=== PATIENT | male | born 1990 | race Caucasian/White ===

== ENCOUNTER 2017-03-14 11:34 | Day surgery (SDC) | payer OTHER ==
[2017-03-13 15:59] VITALS: BMI 38.4
[~2017-03-14 11:34] MED LIST: LACTATED RINGERS SOLUTION 1,000 ML IV SCH; ONDANSETRON 4 MG/2 ML VIAL IVPUSH PRN; PROMETHAZINE HCL 25 MG/1 ML VIAL IVPUSH PRN; oxyCODONE HCL 5 MG TABLET PO PRN
[2017-03-14] MEDS ORDERED: LIDOCAINE HCL 2% (20ML MULTI-DOSE VIAL) NR ONE (13:28)
[2017-03-14] MEDS ORDERED: LIDOCAINE HCL/PF 2% SDV 5ML VIAL ONE (13:46)
[2017-03-14] MEDS ORDERED: MIDAZOLAM HCL 2 MG/2 ML SINGLE DOSE VIAL ONE (13:46)
[2017-03-14] MEDS ORDERED: PROPOFOL 20 ML ONE ×2 (13:57→14:05)
[2017-03-14] MEDS ORDERED: DESFLURANE GAS 240 ML BOTTLE IH ONE (14:01)
[2017-03-14] MEDS ORDERED: HYDROmorphone HCL/PF 1 MG/ML VIAL (FOR PYXIS CHARGING ONLY) ONE (14:06)
[2017-03-14] MEDS ORDERED: DEXAMETHASONE SOD PHOSPHATE 4 MG/1 ML VIAL ONE (14:09)
[2017-03-14] MEDS ORDERED: ONDANSETRON 4 MG/2 ML VIAL ONE (14:09)
[2017-03-14] MEDS ORDERED: BUPIVACAINE HCL/PF 0.25% (2.5MG/ML) 10 ML VIAL IJ ONE ×2 (14:23)
[2017-03-14] MEDS: KETOROLAC TROMETHAMINE 30 MG/1 ML VIAL ONE ×2 (14:45→14:50)
[2017-03-14] MEDS: HYDROmorphone HCL CARPU-JECT 1 MG/1 ML DISP.SYRIN ONE ×2 (15:05→15:15)
[2017-03-14] MEDS ORDERED: oxyCODONE HCL 5 MG TABLET ONE (16:10)
[2017-03-14 16:37] VITALS: TEMP 98.1
[2017-03-14 16:58] VITALS: BP 112/65; PULSE 80
--- NOTE | 2017-03-20 14:42 | OP ---
DATE OF OPERATION: DATE OF DICTATION: 03/20/2017 PREOPERATIVE DIAGNOSES: 1. Right 4th displaced metacarpal fracture. 2. Right 5th displaced metacarpal fracture. OPERATIVE PROCEDURE: 1. Operative treatment of right 4th metacarpal fracture with internal fixation. 2. Operative treatment of right 5th metacarpal fracture with internal fixation. SURGEON: Alexis George MD GRAPHIC PRODUCTION ARTIST: ALVINA Logan ANESTHESIA: General. COMPLICATIONS: None. ESTIMATED BLOOD LOSS: Minimal. INDICATIONS FOR PROCEDURE: The patient is a 27-year-old male with the above finding, indicated for operative treatment. Risks, benefits, and alternatives were discussed with the patient at length. Proper informed consent was obtained. DESCRIPTION OF PROCEDURE: After proper identification of the patient and the correct operative site, the patient was brought to the operating room and placed supine on the operating table. All prominences were well padded. General anesthesia was provided by the anesthesiologist and adequate for procedure. Right upper extremity was prepped and draped in the usual sterile fashion. No tourniquet was used. The fractures were manipulated with a reduction maneuver and able to be acceptably aligned. K-wires were then placed between the 5th, into the 4th and into the 3rd metacarpals to maintain alignment of both fractures. Two total K-wires were placed across the fractures. This provided secure, stable fixation of the fractures into satisfactory position. Pins were cut short and bent outside of the skin. Sterile dressings were applied. Splint was placed. Patient was reversed from anesthesia and brought to recovery room in stable condition. He tolerated the procedure well. Deyvi Varma, the clerical dentist assistant, was integral throughout this procedure. The procedure could not have been performed without a skilled operative clerical dentist assistant. He was needed to hold the fractures reduced while K-wires were placed. This could not have been done by anyone but a skilled operative clerical dentist assistant. Ava [id number]
== END 2017-03-14 16:45 | disposition home or self-care (01) ==
LOC: FASU 11:34
PROVIDERS: ATTEND Orthopaedic Surgery Hand Surgery
PROC: 0PSP34Z Reposition Right Metacarpal with Internal Fixation Device, Percutaneous Approach (ICD-10-PCS; principal; 2017-03-14 14:05)
DX: S62.314A Displaced fracture of base of fourth metacarpal bone, right hand, initial encounter for closed fracture (principal); S62.316A Displaced fracture of base of fifth metacarpal bone, right hand, initial encounter for closed fracture; X58.XXXA Exposure to other specified factors, initial encounter; Y93.9 Activity, unspecified; Y92.9 Unspecified place or not applicable
CPT/HCPCS: 73130-TC-RT; 94010; 94760